=== PATIENT | male | born 1955 | race Caucasian/White ===

== ENCOUNTER 2023-10-21 15:17 | Emergency (ER) | payer MEDICARE, OTHER ==
[2023-10-21] MEDS ORDERED: traMADol 50 MG Tab PO ONE (15:18)
[2023-10-21] MEDS: Sodium Chloride 0.9% 1,000 ML IV ONE (15:38)
[2023-10-21 15:45] LABS: BASOPHILS ABSOLUTE AUTO 0.1 x10-3/uL (0.0-0.3); BASOPHILS PERCENT AUTO 0.7 % (0.3-3.8); EOSINOPHILS PERCENT AUTO 0.5 % (0.1-6.8); HEMATOCRIT 44.2 % (38.3-50.1); HEMOGLOBIN 14.5 g/dL (12.9-17.7); LYMPHOCYTES ABSOLUTE AUTO 1.2 x10-3/uL (0.5-4.5); LYMPHOCYTES PERCENT AUTO 16.9 % (15.8-45.3); MEAN CORPUSCULAR HEMOGLOBIN 33.4 pg (27.0-33.3); MEAN CORPUSCULAR HGB CONC 32.9 g/dL (28.7-35.3); MEAN CORPUSCULAR VOLUME 101.6 fL (80.8-98.7); MEAN PLATELET VOLUME 9.1 fL (6.7-11.0); MONOCYTES ABSOLUTE AUTO 0.7 x10-3/uL (0.0-1.2); MONOCYTES PERCENT AUTO 10.7 % (5.5-15.2); NEUTROPHILS PERCENT AUTO 71.2 % (40.3-71.8); PLATELET COUNT,PLT 219 x10(3)uL (117-477); RED CELL DISTRIBUTION WIDTH 13.7 % (12.4-15.0)
[2023-10-21 15:50] LABS: BLOOD UREA NITROGEN,BUN 24 mg/dL (7-18); CHLORIDE,CL 106 mmol/L (100-110); EST CRCL DRUG DOSING (CG) 58.64 mL/min; ESTIMATED GFR 66 mL/min (>60); POTASSIUM,K 5.1 mmol/L (3.5-5.3); SODIUM,NA 143 mmol/L (135-145)
[2023-10-21 15:54] LABS: A/G RATIO 1.1; ALBUMIN 3.7 g/dL (3.2-4.6); ASPARTATE AMNIOTRANSFERASE,AST 21 IU/L (5-25); PROTEIN TOTAL,TP 7.2 g/dL (6.0-8.0)
[2023-10-21 16:06] LABS: CALCIUM 9.1 mg/dL (8.6-10.2); CARBON DIOXIDE,CO2 28 mmol/L (21-32); CREATININE 1.2 mg/dL (0.70-1.30); GLUCOSE RANDOM 115 mg/dL (80-116)
[2023-10-21 16:07] LABS: RED BLOOD CELL COUNT 4.35 x10(6)uL (3.90-5.90)
[2023-10-21 16:12] LABS: ALANINE AMINOTRANSFERASE,ALT 24 U/L (12-36); ALKALINE PHOSPHATASE 90 IU/L (56-112); BILIRUBIN TOTAL 1.2 mg/dL (0.1-1.3)
[2023-10-21 17:58] LABS: BILIRUBIN,URINE NEGATIVE (NEGATIVE); GLUCOSE,URINE NORMAL (NORMAL); KETONES,URINE NEGATIVE (NEGATIVE); LEUKOCYTE ESTERASE,URINE NEGATIVE (NEGATIVE); NITRITE,URINE NEGATIVE (NEGATIVE); OCCULT BLOOD,URINE NEGATIVE (NEGATIVE); PH,URINE 6.5 (5.0-6.5); PROTEIN,URINE NEGATIVE (NEGATIVE); UROBILINOGEN,URINE NORMAL (NEGATIVE)
[2023-10-21 18:02] LABS: APPEARANCE,URINE CLEAR (CLEAR); BACTERIA,URINE FEW (NS); COLOR,URINE YELLOW (YELLOW); SQUAMOUS EPITHELIAL CELLS,UR OCCASIONAL (NS,R,O); WBC,URINE 0-5 (0-5)
[2023-10-21] MEDS: Diphtheria,Pertussis(Acell),Tetanus Vaccine 0.5 ML Syringe IM ONE (18:15)
[2023-10-21] MEDS: Morphine 2 MG/ML SYRINGE IVPUSH ONE (18:28)
[2023-10-21] MEDS: Ketorolac 30 MG/ML SDV IVPUSH ONE (18:28)
[2023-10-21] MEDS: Iopamidol 755 Mg/ML 100 ML Bottle IV SCH (18:37)
[2023-10-21] MEDS: Amoxicillin/Clavulanate K 875-125 MG Tab PO ONE (21:00)
[2023-10-21] MEDS: Lidocaine/Prilocaine 2.5-2.5% Crm 5 GM Tube TOP ONE (21:00)
== END 2023-10-21 21:41 | disposition home or self-care (01) ==
LOC: FB.ED 15:17
DX: S92.402A Displaced unspecified fracture of left great toe, initial encounter for closed fracture (principal); S92.502A Displaced unspecified fracture of left lesser toe(s), initial encounter for closed fracture; S51.012A Laceration without foreign body of left elbow, initial encounter; S80.02XA Contusion of left knee, initial encounter; S80.01XA Contusion of right knee, initial encounter; S20.211A Contusion of right front wall of thorax, initial encounter; D75.89 Other specified diseases of blood and blood-forming organs; R79.89 Other specified abnormal findings of blood chemistry; J44.9 Chronic obstructive pulmonary disease, unspecified; Z79.899 Other long term (current) drug therapy; Z23 Encounter for immunization; V47.5XXA Car driver injured in collision with fixed or stationary object in traffic accident, initial encounter
CPT/HCPCS: 12032; 29515; 71260; 72125; 73080; 73562; 73630; 74177; 80053; 80307; 81001; 85025; 90471; 90715; 96361; 96374; 96375; 99285; A9270; J1885; J2270; J7030; Q9967; 99284